=== PATIENT | female | born 1990 | race Caucasian/White ===

== ENCOUNTER 2025-04-29 15:24 | Emergency (ER) | payer SELFPAY ==
[2025-04-29 15:25] VITALS: BP 120/92; PULSE 105; RESP 19; TEMP 36.8; O2SAT 99; BMI 31.6
--- NOTE | 2025-04-29 15:59 | EKG12_ITS ---
Test Reason : Blood Pressure : */* mmHG Vent. Rate : 93 BPM Atrial Rate : 93 BPM P-R Int : 146 ms QRS Dur : 78 ms QT Int : 360 ms P-R-T Axes : 63 17 2 degrees QTcB Int : 447 ms Normal sinus rhythm Normal ECG Confirmed by CAMILA MCGHEE, CELENA ([id number]), newspaper editor HAO ORTEGA ([id number]) on 05/01/2025 7:36:20 AM Referred By: Guillermo Sánchez Confirmed By: CELENA JENSEN MD
--- NOTE | 2025-04-29 15:59 | EKG12_ITS ---
Test Reason : Blood Pressure : */* mmHG Vent. Rate : 93 BPM Atrial Rate : 93 BPM P-R Int : 146 ms QRS Dur : 78 ms QT Int : 360 ms P-R-T Axes : 63 17 2 degrees QTcB Int : 447 ms Normal sinus rhythm Normal ECG Confirmed by CAMILA MCGHEE, CELENA ([id number]), medical transcription editor HAO ORTEGA ([id number]) on 05/01/2025 7:36:20 AM Referred By: Guillermo Sánchez Confirmed By: CELENA JENSEN MD
[2025-04-29] MEDS: Lorazepam 2 MG/ML WCH Syringe 0.5 MG IV ×2 (16:21→18:55)
[2025-04-29 16:27] LABS: Hematocrit 43.8 % (37-47); Hemoglobin 15.1 g/dL (12.0-15.0); Immature Granulocytes Count 0.080 X10^3/uL (0.0-0.0); Mean Corp Hgb Conc 34.5 g/dL (32-36); Mean Corpuscular Volume 85.7 fL (81-99); Mean Platelet Vol. 9.3 fl (6.2-12.0); NRBC Flagged by Analyzer 0 % (0-5); Platelet Count 406 K/mm3 (150-450); RBC Distribution Width CV 12.1 % (11.6-14.6); RBC Distribution Width SD 37.6 fl (35.1-43.9); Red Blood Count 5.11 M/mm3 (4.2-5.4); White Blood Count 17.1 K/mm3 (4.4-11.0)
[2025-04-29 16:45] LABS: Base Excess -2 mmol/L (-2 to +2); FI02 21.0; PO2 93 mmHG (75-100); SITE L Brach; SO2 98 % (95-99)
[2025-04-29 17:12] LABS: Anion Gap 13 (5-15); BUN 9 mg/dL (4-19); BUN/Creat Ratio 11.9 RATIO (10-20); Calcium,Total 9.5 mg/dL (7.6-11.0); Carbon Dioxide 19.8 mmol/L (21.0-32.0); Chloride 104 mmol/L (98-108); Estimated Creatinine Clearance 124.69 ml/min (50-250); Glucose 121 mg/dL (70-99); Potassium 3.9 mmol/L (3.3-5.1)
[2025-04-29 17:19] LABS: Internal QC Validated? YES +Cl - CLEAR BKGD; Pregnancy, Serum, hCG Quali. NEGATIVE Negative; Record Kit Lot#, Serum Preg. 0000962302
[2025-04-29 17:25] VITALS: BP 123/83; PULSE 105; O2SAT 100
--- NOTE | 2025-04-29 17:58 | EDS_ITS ---
HPI HPI - Psych History of Present Illness Chief Complaint: Anxiety Detail of Chief Complaint: Anxiety/panic attack Informant: patient Onset/Context/Timing Onset: Today Context: Sudden Onset Conflict: - (Recently moved from [facility] to [place]) Timing: Continuous and Waxes and wanes Current Severity: Moderate Maximum Severity: Severe Worsened by: Situational factors Relieved by: Nothing Associated Symptoms Associated Symptoms - Psych: Positive for Change in Eating and Change in sleeping; Negative for Depressed, Decreased Interest, Guilt, Decreased Concentration, Hopelessness, Suicidal Thoughts, Easily distracted, Grandiosity, Flight of Ideas, Increased activity, Pressured Speech, Agitated, Angry, Hostile, Threatening, Confusion, Paranoia, Visual Hallucinations or Auditory Hallucinations Specific plan (suicidal thought): Not applicable Narrative Narrative: Patient is a 34-year-old woman. 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 She just recently moved to [place]. She currently has a 5-hour drive back home. She has a telemetry visit with therapist at and ointment to see psychiatrist tomorrow. Patient presents because of palpitations, chest discomfort, shortness of breath. She was initially seen in the hallway. She had increased anxiety. She states she does not feel well. She became pale and near syncope with diaphoresis and emesis.. She does not have a history of panic attacks. She states since moving she has had trouble sleeping. She denies fever, chills nitros. Denies headache, visual, ocular auditory sy mptoms. She denies upper respiratory symptoms. She denies chest pain with breathing. She has no history of PE or DVT. She denies leg pain, swelling or discoloration. Prior similar symptoms: Yes Recent Illness/[facility] Medical History Anxiety Hypothyroidism POTS (postural orthostatic tachycardia syndrome) PTSD (post-traumatic stress disorder) Home Medications ?Medication ?Instructions ?Recorded ?Last Taken ?Type clorazepate dipotassium 3.75 mg 3.75 mg PO TID Anxiety 4 days #12 04/29/25 Unknown Rx tablet tabs ondansetron 4 mg disintegrating 4 mg PO Q8H PRN PRN Na usea #10 tabs 04/29/25 Unknown Rx tablet zolpidem 5 mg tablet (Ambien) 5 mg PO QHS PRN insomnia #5 tabs 04/29/25 Unknown Rx Allergy/AdvReac Type Severity Reaction Status Date / Time No Known Allergies Allergy Verified 04/29/25 15:27 Social History Smoking Status: Never smoker ROS ROS ED Constitutional Constitutional ED: Denies chills, fever(s), subjective, sweats or weight loss Eyes Eyes: Denies blurry vision, change in vision or diplopia ENT ENT ED: Denies ear pain, rhinorrhea or sore throat Cardiovascular Cardiovascular: Reports chest pain, palpitations and racing heartbeat; Denies orthopnea or paroxysmal nocturnal dyspnea Respiratory/Chest Respiratory/Chest: Reports dyspnea; Denies dyspnea on exertion, orthopnea or paroxysmal nocturnal dyspnea Gastrointestinal Gastrointestinal: Reports nausea and vomiting; Denies abdominal pain or melena Genitourinary Genitourinary ED: Denies dysuria, hematuria or urinary frequency Musculoskeletal Musculoskeletal: Denies arthralgias, back pain or myalgias Integumentary Denies rash Neurologic Neurologic: Reports paresthesias; Denies headache(s) or weakness Psychiatric Psychiatric: Reports anxiety; Denies depression Endocrine Endocrinology: Denies polydipsia, polyphagia or polyuria Hematologic/Lymphatic Hematologic/Lymphatic: Denies easy bleeding or easy bruising EXAM Physical Exam Const Vital Signs: 04/29/25 15:25 04/29/25 17:25 Temperature 98.3 F Temperature Source Oral Pulse Rate 105 H 105 H Respiratory Rate 19 H Blood Pressure 120/92 H 123/83 H Blood Pressure Mean 101 96 Pulse Ox 99 100 Oxygen Delivery Method Room Air Room Air Positive well nourished and well developed Constitutional Narrative: Patient appears anxious. Blood pressure slightly elevated 123/83 heart rate is 105. General Appearance ED: well developed HEENT Reports moist mucous membranes normocephalic and atraumatic Eyes PERRL and EOMs intact bilaterally General Eye ED: Negative for pale conjunctiva or scleral icterus Neck no lymphadenopathy, supple and no JVD Resp normal respiratory effort and clear to auscultation bilaterally Cardio S1 normal heart sound, S2 normal heart sound and no murmurs Rate: regular rate Rhythm: regular rhythm Back/Spine no CVA tenderness Extremity normal to inspection Extremity Narrative: There is no clubbing or cyanosis. There is no mottling of her extremities. General Extremety ED: Negative for edema or tenderness General Extremity: Negative for edema Neuro oriented x3 and CN's II-XII intact bilaterally [place] Coma Scale: document GCS findings Spontaneous Obeys Commands Oriented 15 Sensorium / Orientation: alert Psych mental status grossly normal, activity/motor behavior normal, denies hallucinations, denies homicidal ideation and denies suicidal ideation Appearance: grossly normal Attitude: other Patient slightly anxious. Activity / Motor Behavior: appropriate eye contact Speech: normal speech Mood & Affect: anxious Thought Process: normal thought process Thought Content: normal thought content Attention / Concentration: attention grossly intact Memory / Cognition: memory grossly intact and cognition grossly intact Insight: insight good Judgement: judgement good Skin Skin Narrative: When patient had an episode of near syncope there was pallor or diaphoresis. Otherwise normal MDM MDM MDM Narrative Medical decision making narrative: Patient with history of pots disease, posttraumatic stress disorder with recent move she has been anxious. She is on no antianxiety addict. She has no suicidal homicidal thoughts. She has no hallucinations. EKG was obtained per nurse protocol for chest pain. ABG was obtained because of concern for hypoventilation. CBC was obtained to rule out anemia. Electrolytes rule out kidney disease. Suspect patient is having anxiety/panic attack. There are no old records for review. Patient received Zofran IV push for her nausea and vomiting and Ativan 0.5 mg IV push for her anxiety. She was reassessed at approximately 1755. She feels markedly better. Plan is to discharge home with prescription for Ambien since she has had insomnia since recent move, antianxiety, Tranxene and Zofran for nausea. Lab Data Attestation: I reviewed the patient's lab results. Lab results narrative: White count is elevated. This could be due to stress. There is no bandemia. E lectrolyte panel is unremarkable. Glucose slightly elevated 121 with a normal CO2 anion gap. Labs: Laboratory Results - last 24 hr 04/29/25 16:15 WBC 17.1 H RBC 5.11 Hgb 15.1 H Hct 43.8 MCV 85.7 MCH 29.5 MCHC 34.5 RDW Std Deviation 37.6 RDW Coeff of Natty 12.1 Plt Count 406 MPV 9.3 Immature Gran % (Auto) 0.500 Neut % (Auto) 83.0 H Lymph % (Auto) 10.8 L Eddy % (Auto) 4.9 Eos % (Auto) 0.3 Baso % (Auto) 0.5 Absolute Neuts (auto) 14.2 H Absolute Lymphs (auto) 1.85 Nucleated RBC % 0 Sodium 137 Potassium 3.9 Chloride 104 Carbon Dioxide 19.8 L Anion Gap 13 BUN 9 Creatinine 0.75 Estim Creat Clear Calc 124.69 Est GFR (MDRD) Non-Af 105 BUN/Creatinine Ratio 11.9 Glucose 121 H Calcium 9.5 Serum , Qual NEGATIVE ABG Data ABG results: ABG 04/29/25 16:41 Specimen Type ART Sample Site L Brach pH 7.46 H Bicarbonate Actual 21.7 L Total CO2 23 Base Excess -2 O2 Saturation 98 O2 % 21.0 ABG pCO2 30.9 L ABG pO2 93 Igor Test N/A O2 Delivery Device Not entered Vent Mode Not entered Discharge Plan Triage Chief Complaint: Anxiety ED Provider: Guillermo Sánchez Dx/Rx/DC Orders Clinical Impression: Panic attack, Vasovagal near syncope, Postural orthostatic tachycardia syndrome [POTS], Insomnia due to anxiety and fear Instructions: ED Insomnia, ED Panic Attack, ED Near-Fainting- Vagal Reaction Prescriptions: New ondansetron 4 mg tablet,disintegrating 4 mg PO Q8H PRN PRN (Reason: Nausea) Qty: 10 0RF clorazepate dipotassium 3.75 mg tablet 3.75 mg PO TID 4 Days Qty: 12 0RF zolpidem [Ambien] 5 mg tablet 5 mg PO QHS PRN (Reason: insomnia) Qty: 5 0RF Primary Care Provider: [facility] Doctor,Out of Referrals: [facility] Doctor,Out of [Primary Care Provider] - Print Language: Palestinian Disposition Disposition: Home, Self Care
--- NOTE | 2025-04-29 18:31 | ED.RN ---
when this rn goes in to attempt to discharge patient, pt informs this rn that she still is not feeling well. there is a little bit of panic still in my chest and i am afraid if i go home, i will be back in 4 hours for the same thing. Also, i have POTS and my heart isnt right. when i go to stand up, it will really increase. when i first got here i vomited a liter of fluids so i think that iv fluids would be beneficial. this rn states understanding and then proceeds to tell the provider. dr. ash orders orthostatic vital signs and another 0.5 mg of Ativan IV. provider to enter orders in the computer.
[2025-04-29 18:37] VITALS: BP 111/77; BP 116/65; BP 135/85; PULSE 106; PULSE 135; PULSE 159
[2025-04-29 19:00] VITALS: BP 113/84; PULSE 96; RESP 11; O2SAT 98
[2025-04-29 19:38] VITALS: BP 113/84; PULSE 96; RESP 11; TEMP 36.8; O2SAT 98
[2025-04-29 21:44] LABS: Color, Urine Yellow (Yellow); Glucose, Dipstick Normal (Normal); Ketone-Dipstick 15 mg/dl (Negative); Leukocyte Esterase-Dipstick Negative /ul (Negative); Nitrite-Dipstick Negative (Negative); Occult Blood-Urine 10 /ul (Negative); Protein-Dipstick 30 mg/dl (Negative); Specific Gravity, Urine 1.015 (1.002-1.030); Urine Bilirubin Dipstick Negative (Negative)
[2025-04-29 22:03] LABS: Red Blood Cells-Urine 0-5 SEEN /hpf (0-5); Squamous Epithelial Cells - UA 0-5 SEEN /hpf (5-10)
[2025-04-29 22:04] LABS: Mucous, Urine 1+ /hpf (<or=2+)
== END 2025-04-29 22:44 | disposition home or self-care (01) ==
PROVIDERS: Emergency Provider Emergency Medicine; Referring Provider Emergency Medicine; Visit Provider Emergency Medicine
DX: F40.9 Phobic anxiety disorder, unspecified (principal); R55 Syncope and collapse; R07.9 Chest pain, unspecified; F41.0 Panic disorder [episodic paroxysmal anxiety]; G90.A Postural orthostatic tachycardia syndrome [POTS]; G47.00 Insomnia, unspecified; R11.10 Vomiting, unspecified; Z79.899 Other long term (current) drug therapy
CPT/HCPCS: 36600; 80048; 81001; 82803; 84703; 85025; 93005; 96374; 96376; 99285; A4216